=== PATIENT | male | born 1995 | race Caucasian/White ===

== ENCOUNTER 2021-11-28 16:08 | Emergency (ER) | payer OTHER ==
[~2021-11-28] VITALS: Ht 182.9 cm; Wt 84.1 kg
== END 2021-11-28 19:12 | disposition home or self-care (01) ==
LOC: ED 16:08
DX: S61.211A Laceration without foreign body of left index finger without damage to nail, initial encounter (principal); W26.9XXA Contact with unspecified sharp object(s), initial encounter
CPT/HCPCS: 12001; 99282-25